=== PATIENT | male | born 1970 | race Two or more races ===

== ENCOUNTER 2020-07-13 14:46 | Emergency (ER) | payer MEDICAID, SELFPAY ==
--- NOTE | 2020-07-13 15:55 | ED.GENADULT ---
HPI - General Adult General Chief complaint: General Medical Stated complaint: covid test Time Seen by Provider: 07/13/20 15:55 Source: patient Mode of arrival: ambulatory Limitations: no limitations History of Present Illness MD complaint: wants covid test Onset (ago): day(s) (1) Radiation: non-radiation Severity: mild Relieving factors: none Exacerbating factors: none Associated symptoms: denies other symptoms Treatments prior to arrival: none Related Data Allergies Allergy/AdvReac Type Severity Reaction Status Date / Time No Known Allergies Allergy Unverified 06/06/20 14:46 Review of Systems Review of Systems: Constitutional : No Weight loss, No Fever, No Chills, No Fatigue, No Malaise ENT/Mouth : No sore throat, No Rhinorrhea Eyes: No Eye Pain, No Swelling, No Redness Cardiovascular : No Chest Pain, No SOB, No Dyspnea on Exertion, No Orthopnea, No Edema, No Palpitations Respiratory : No Cough, No Sputum, No Wheezing Gastrointestinal : No Nausea, No Vomiting, No Diarrhea, No Constipation, No abdominal pain Musculoskeletal : No joint pain, No Myalgias, No Joint Swelling Skin : No Skin Lesions, No rash Neuro : No Weakness, No Numbness, No Dizziness, No Headache All other systems reviewed and are negative [facility] Past Medical History Medical History (Updated 07/13/20 @ 16:00 by Jolly Palma DO) No active medical problems Social History Social History (Updated 07/13/20 @ 16:00 by Jolly Palma DO) Smoking Status: Current every day smoker Substance Use Type: Former Substance User Physical Exam Vital Signs: Appearance: Alert. Oriented X3. No acute distress. Eyes: Pupils equal, round and reactive to light. ENT: Pharynx normal. Neck: Normal inspection. Neck supple. CVS: Normal heart rate and rhythm. Pulses normal. Respiratory: No respiratory distress. Breath sounds normal. Abdomen: Soft and nontender. Skin: Skin warm and dry. Normal skin color. Normal skin turgor. Extremities: No lower extremity edema. No calf ttp Neuro: Oriented X 3. No motor deficit. No sensory deficit. Medical Decision Making MDM Narrative Medical decision making narrative: 50 yo male asymptomatic male with no sig medical problems here and wants COVID test. Discharge Plan Discharge Clinical Impression: Normal exam Patient Disposition: Home, Self-Care Instructions: COVID-19 (Coronavirus Disease 2019) (ED) Additional Instructions: you were tested for COVID we will call you with results in 2 to 4 days, wear a mask, socially distance
[2020-07-13 16:09] VITALS: BP 134/84; PULSE 79; RESP 16; TEMP 37.1; O2SAT 100; BMI 25.0
== END 2020-07-13 16:30 | disposition home or self-care (01) ==
PROVIDERS: Emergency Provider Emergency Medicine
DX: Z20.828 Contact with and (suspected) exposure to other viral communicable diseases (principal); F17.200 Nicotine dependence, unspecified, uncomplicated; Z71.6 Tobacco abuse counseling
CPT/HCPCS: 87635; 99283

== ENCOUNTER 2020-10-30 13:48 | Outpatient (REF) | payer MEDICAID, SELFPAY | END 2020-10-30 13:49 | disposition home or self-care (01) | LOC: HO.LAB 13:48 | PROVIDERS: Visit Provider Internal Medicine | DX: Z20.822 Contact with and (suspected) exposure to COVID-19 (principal) | CPT/HCPCS: 36415; C9803; U0003; U0005 ==

== ENCOUNTER 2023-05-24 15:13 | Emergency (ER) | payer MEDICAID, SELFPAY ==
--- NOTE | 2023-05-24 16:18 | ED_ITS ---
HPI - General Adult General Chief complaint: Skin/Abscess/Foreign Body Stated complaint: Rash on arms Time Seen by Provider: 05/24/23 20:48 Source: patient Mode of arrival: ambulatory Limitations: no limitations History of Present Illness HPI narrative: Patient comes to the emergency room complaining of itching all over his body for 5 years. Patient denies fever chills. Related Data Previous Rx's Medication Instructions Recorded hydrocortisone 2.5 % topical cream 1 appl topical TID PRN itching 05/24/23 #28.35 grams Allergies Allergy/AdvReac Type Severity Reaction Status Date / Time No Known Allergies Allergy Verified 05/24/23 16:21 Review of Systems Review of Systems: Constitutional : No Weight loss, No Fever, No Chills, No Night Sweats, No Fatigue, No Malaise ENT/Mouth : No Hearing loss, No Ear Pain, No Nasal Congestion, No Sinus Pain, No Hoarseness, No sore throat, No Rhinorrhea, No Swallowing Difficulty Eyes: No Eye Pain, No Swelling, No Redness, No Foreign Body, No Discharge, No Vision Changes Cardiovascular : No Chest Pain, No SOB, No Dyspnea on Exertion, No Orthopnea, No Edema, No Palpitations Respiratory : No Cough, No Sputum, No Wheezing, No Smoke Exposure, No Dyspnea Gastrointestinal : No Nausea, No Vomiting, No Diarrhea, No Constipation, No abdominal Pain, No Hematochezia, No Melena Genitourinary : no irregular bleeding, No Dysuria, No Urinary Frequency, No Hematuria, No Urinary Incontinence, No Urgency, No Flank Pain, No Urinary Flow Changes, No Hesitancy Musculoskeletal : No joint pain, No Myalgias, No Joint Swelling Skin : Complaining of diffuse itchy skin for 5 years Neuro : No Weakness, No Numbness, No Paresthesias, No Loss of Consciousness, No Dizziness, No Headache Psych : No Anxiety/Panic, No Depression, No SI/HI/AH/VH, No Social Issues, Heme/Lymph: No Bruising, No Bleeding,No Lymphadenopathy Endocrine : No Polyuria, No Polydipsia, No Temperature Intolerance COUNTS INCLUDE 234 BEDS AT THE [facility] Past Medical History Medical History No active medical problems Social History Social History (Updated 07/13/20 @ 16:00 by Bella Palma DO) Alcohol intake: never Substance Use Type: Former Substance User Advance Directives: No Advance Directives Information Provided: No Physical Exam ED Vital Signs: Vital Signs - 24 hr 05/24/23 16:19 05/24/23 21:06 Temperature 98.8 F 98 F Pulse Rate 75 58 Respiratory Rate 18 17 Blood Pressure 135/71 104/58 L Pulse Oximetry 97 98 Oxygen Delivery Method Room Air Room Air BMI result Body Mass Index 21.9 Const Other: Appearance: Alert. Oriented X3. No acute distress. Eyes: Pupils equal, round and reactive to light. ENT: Pharynx normal. Neck: Normal inspection. Neck supple. No lymph nodes noted. No crepitus CVS: Normal heart rate and rhythm. Pulses normal. Normal S1 and S2 Respiratory: No respiratory distress. Breath sounds normal. No Wheezing. No rales Abdomen: Soft and nontender. No rigidity. No distention. Skin: Skin warm and dry. Patient has scratch sapp and nail sapp in his face and lower extremities. No hives or visible rash Extremities: No lower extremity edema. No Lacerations. No Rash Neuro: Oriented X 3. No motor deficit. No sensory deficit. Moving all extremities. No slurred speech. CN 2 through 12 grossly intact Psych: calm, cooperative, normal affect Course Course Course Narrative: This is a rapid medical exam: Additional HPI, ROS, PE not included below will be deferred to primary provider. Patient is a 53-year-old male presenting to the emergency department with complaint of rash to arms, legs, face for approximately one month. Describes as pruritic, non painful. Reports that when the lesions become wet the scabs fall off leaving an open wound. Denies any fevers. No oral lesions. Medical Decision Making Medical Decision Making MDM Narrative: -no obvious rash present -patient to apply topical steroids to the affected areas. -no signs of bed bugs or scabies Differential Diagnosis Differential Diagnoses: The differential diagnosis associated with the presentation includes (Dermatitis, dry skin) Discharge Plan Discharge Clinical Impression: Dermatitis Patient Disposition: Home, Self-Care Instructions: Dermatitis (ED) Additional Instructions: Please follow-up with your primary care physician tomorrow. If you have any worsening or new symptoms, please return to the emergency room or call 911 Prescriptions: New hydrocortisone 2.5 % cream 1 appl topical TID PRN (Reason: itching) Qty: 28.35 0RF
[2023-05-24 16:19] VITALS: BP 135/71; PULSE 75; RESP 18; TEMP 37.1; O2SAT 97; BMI 21.9
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
[2023-05-24 21:06] VITALS: BP 104/58; PULSE 58; RESP 17; TEMP 36.6; O2SAT 98
== END 2023-05-24 21:31 | disposition home or self-care (01) ==
PROVIDERS: Emergency Provider Emergency Medicine
DX: L30.9 Dermatitis, unspecified (principal); R21 Rash and other nonspecific skin eruption
CPT/HCPCS: 99283

== ENCOUNTER 2023-07-17 03:26 | Emergency (ER) | payer SELFPAY ==
[2023-07-17] VITALS (7 sets, daily range): BP systolic 116–171; BP diastolic 57–101; PULSE 70–99; RESP 12–16; TEMP 36.6–36.9; O2SAT 97–98; BMI 24.4
--- NOTE | 2023-07-17 05:41 | PC.NURSE ---
respirations even and unlabored nsr on monitor 72 bpm sats 97% RA. pt sleeping in stretcher; awaiting primary eval by ed provider. call lemus within reach.
--- NOTE | 2023-07-17 06:10 | MHC.EDTECH ---
Pt still refusing to dress into hospital pants and gown
--- NOTE | 2023-07-17 06:44 | ED.GENADULT ---
HPI - General Adult General Chief complaint: General Medical Stated complaint: Substance abuse Time Seen by Provider: 07/17/23 06:34 Source: patient and EMS Mode of arrival: EMS Limitations: no limitations History of Present Illness HPI narrative: 53-year-old male with a history of polysubstance use presents to the ER with complaints of feeling like bugs are crawling on him. Patient states he uses heroin and crack daily. Patient reports he injects these. He denies alcohol use. He is currently homeless. He denies SI or HI. Related Data Previous Rx's Medication Instructions Recorded hydrocortisone 2.5 % topical cream 1 appl topical TID PRN itching 05/24/23 #28.35 grams Allergies Allergy/AdvReac Type Severity Reaction Status Date / Time No Known Allergies Allergy Verified 05/24/23 16:21 Review of Systems Review of Systems: Yes all other systems are reviewed and are negative Constitutional: Constitutional: Reports no additional constitutional complaints, Denies body ache(s), Denies chills, Denies fever(s), Denies headache(s) and Denies weakness Eyes: Eyes: Reports no additional eye complaints and Denies change in vision ENT: Reports system reviewed and no additional complaints, except as documented, Denies dizziness, Denies headache(s), Denies nasal congestion, Denies nasal discharge and Denies neck pain Cardiovascular: Cardiovascular: Reports no additional cardiovascular complaints, Denies chest pain, Denies leg edema and Denies dyspnea Respiratory: Respiratory: Reports no additional respiratory complaints, Denies cough and Denies dyspnea Gastrointestinal: Gastrointestinal: Reports no additional gastrointestinal complaints, Denies abdominal pain, Denies diarrhea, Denies nausea and Denies vomiting Genitourinary: Genitourinary: Denies urinary incontinence Musculoskeletal: Musculoskeletal: Reports no additional musculoskeletal complaints, Denies back pain, Denies arthralgias, Denies joint swelling, Denies neck pain, Denies numbness and Denies tingling Integumentary/Breasts: Skin/Breast: Reports system reviewed and no additional complaints, except as docu and Denies rash Neurologic: Reports system reviewed and no additional complaints, except as documented, Denies Abnormal speech present, Denies dizziness, Denies headache(s), Denies numbness, Denies tingling and Denies weakness PMF Past Medical History Attestation statement: The following information was validated with the patient. Source: old records reviewed and nursing notes reviewed Medical History No active medical problems Social History Social History Alcohol intake: never Smoked in Last 30 Days: Yes Use of substances other than those prescribed or required for medical reasons: Yes Substance Use Type: Crack/Cocaine and Heroin Advance Directives: No Advance Directives Information Provided: No Physical Exam ED Vital Signs: Vital Signs - 24 hr 07/17/23 03:36 07/17/23 03:45 07/17/23 05:42 Temperature 98.4 F Pulse Rate 99 85 72 Respiratory Rate 16 15 16 Blood Pressure 171/101 H 170/101 H Pulse Oximetry 98 97 97 Oxygen Delivery Method Room Air Room Air Room Air 07/17/23 06:09 07/17/23 10:56 Temperature 97.8 F Pulse Rate 70 74 Respiratory Rate 12 12 Blood Pressure 116/77 129/57 L Pulse Oximetry 98 98 Oxygen Delivery Method Room Air Room Air BMI result Body Mass Index 24.4 Const General: cooperative, healthy appearing, comfortable and no acute distress Orientation/consciousness: patient oriented x3 Limitations: no limitations HENMT Head: Yes normal to inspection Ears: hearing grossly normal bilaterally General nose exam: Normal external nose present Face and sinus: Yes normal facial exam Mouth: Normal oral and palatal mucosa present Throat: Yes posterior oropharynx normal Eyes General: appearance normal, both eyes and all related structures Pupils: Equal, round and reactive pupils present Neck Neck: Yes normal visual inspection Chest Chest palpation & inspection: normal inspection of the chest Resp Effort & Inspection: normal respiratory effort Auscultation: clear to auscultation bilaterally Cardio Rate: regular rate Rhythm: regular rhythm Peripheral pulses: Peripheral pulses 2+ throughout GI Inspection: Yes normal to inspection Palpation (GI): Soft to palpation and nontender Auscultation: normal bowel sounds Back/Spine/Pelvis Thoracic/Lumbar Spine: thoracic and lumbar spine normal to inspection Skin General skin exam: no rashes or lesions noted Neuro General: patient oriented x3, no focal motor deficits and normal sensation to monofilament Cranial nerves: Yes Equal, round and reactive pupils present Cognition (Neuro): normal cognition Speech: No Abnormal speech present Gait exam (Neuro): Normal gait present Motor exam (neuro): 5/5 motor strength present throughout Extrem General: Yes normal to inspection Course Course Course Narrative: 1120-No longer wants to speak to learning coach. Up and ambulatory with steady gait. Tolerating PO. Plan for discharge Medical Decision Making Medical Decision Making [facility] Narrative: 53-year-old male with a history of polysubstance use presents to the ER with complaints of feeling like bugs are crawling on him.? Patient states he uses heroin and crack daily.? Patient reports he injects these.? He denies alcohol use.? He is currently homeless.? He denies SI or HI. Exam is benign. Patient wants to talk to the learning coach. Differential Diagnosis Differential Diagnoses: The differential diagnosis associated with the presentation includes Polysubstance use Consult Healthcare Provider Management of the patient was discussed with: Spooling Supervisor Independent Historian Clinical information obtained from an independent historian. History obtained from or confirmed by: EMS Discharge Plan Discharge Clinical Impression: Polysubstance use disorder Patient Disposition: Home, Self-Care Instructions: Polysubstance Abuse (ED) Prescriptions: No Action hydrocortisone 2.5 % cream 1 appl topical TID PRN (Reason: itching) Qty: 28.35 0RF
--- NOTE | 2023-07-17 07:43 | PC.NURSE ---
pt appear to be sleeping with even and unlabored respirations. call lemus within reach
--- NOTE | 2023-07-17 10:57 | PC.NURSE ---
patient awake in room, removed self from ekg monitor.
--- NOTE | 2023-07-17 11:15 | PC.NURSE ---
patient provided with water and sandwich. when asked if patient was interested in detox he stated I'm about to leave, I'm ready to go . provider aware. attempting to find t-shirt for patient d/t fact he came in with no clothing.
--- NOTE | 2023-07-17 11:34 | MHC.RECOVRN ---
data analysis intern met with patient in ED Bed 6. He was being discharged- waiting for DC instructions. Patient reports using heroin, but is not interested in discussing this further. Confirmed he is not interested in MOUD at this time. He was anxious to leave. RN able to provide him with [facility] contact information prior to him walking. Discharging RN able to hand him DC instructions just prior to him walking out.
== END 2023-07-17 11:47 | disposition home or self-care (01) ==
LOC: HO.ED 11:30
PROVIDERS: Emergency Provider Student in an Organized Health Care Education/Training Program
DX: F19.10 Other psychoactive substance abuse, uncomplicated (principal)
CPT/HCPCS: 99282; 99284

== ENCOUNTER 2023-12-06 10:03 | Emergency (ER) | payer MEDICAID, SELFPAY ==
[2023-12-06 10:21] VITALS: BP 132/81; PULSE 86; RESP 16; TEMP 36.9; O2SAT 100; BMI 22.4
--- NOTE | 2023-12-06 13:21 | ED_ITS ---
HPI - Skin/Abscess/Foreign Bdy General Chief complaint: Skin/Abscess/Foreign Body Stated complaint: neck abscess Time Seen by Provider: 12/06/23 12:49 Source: patient Mode of arrival: ambulatory Limitations: no limitations History of Present Illness HPI narrative: 53-year-old male presents with concerns that he has an abscess that is developing and worsening to the back of his neck for the past week. Reports it is sore. He reports it has been self draining. Denies fevers, chills, numbness, tingling, difficulties moving neck, headache, vision changes, dizziness or weakness. Related Data Previous Rx's Medication Instructions Recorded hydrocortisone 2.5 % topical cream 1 appl topical TID PRN itching 05/24/23 #28.35 grams cephalexin 500 mg tablet 500 mg PO Q6H 10 days #40 tabs 12/06/23 doxycycline hyclate 100 mg capsule 100 mg PO BID 10 days #20 caps 12/06/23 Allergies Allergy/AdvReac Type Severity Reaction Status Date / Time No Known Allergies Allergy Verified 12/06/23 10:21 Review of Systems Review of Systems: Yes all other systems are reviewed and are negative [facility] Past Medical History Attestation statement: The following information was validated with the patient. Source: old records reviewed and nursing notes reviewed Medical History No active medical problems Social History Social History Unable to assess alcohol history related to: Unknown Alcohol intake: never Smoked in Last 30 Days: No Use of substances other than those prescribed or required for medical reasons: No Substance Use Type: Crack/Cocaine and Heroin Advance Directives: No Physical Exam Vital Signs: Vital Signs: Last Vital Signs Temp 98.5 F 12/06/23 10:21 Pulse 86 12/06/23 10:21 Resp 16 12/06/23 10:21 BP 132/81 12/06/23 10:21 Pulse Ox 100 12/06/23 10:21 O2 Del Method Room Air 12/06/23 10:21 BMI result Body Mass Index 22.4 Vital signs stable Appearance: Alert.? Oriented X3.? No acute distress.? Head: Normocephalic, atraumatic, no step-offs or deformities Eyes: Pupils equal, round and reactive to light.? Neck: Neck supple.? CVS? Pulses normal.? Respiratory: No respiratory distress. Abdomen: Soft and nontender.? Skin: Skin warm and dry.? Normal skin color.? Normal skin turgor.?2 cm x 2 cm indurated area in the back of the neck appears to be developing abscess with overlying erythema and warmth. No streaking or lymphangitic spread. Full range of motion to neck, painless. Extremities: No lower extremity edema.? No calf ttp. 5/5 strength to bilateral upper and lower extremities Neuro: Oriented X 3.? No motor deficit.? No sensory deficit. CN 2-12 intact Medical Decision Making Medical Decision Making MDM Narrative: 53-year-old male presents with developing abscess to back of neck present for a week worsening. Intermittently draining. Physical exam 2 cm x 2 cm indurated area in the back of the neck appears to be developing abscess with overlying erythema and warmth. No streaking or lymphangitic spread. Full range of motion to neck, painless. History and physical exam concerning for developing abscess. No signs of fluctuance on exam therefore unlikely abscess that is ready to be drained. Unlikely necrotizing infection, meningitis or encephalitis. No signs of systemic illness. Plan at this time will discharge patient home with antibiotics instructed on warm soaks. Educated on reassessment/re-evaluation in a week by PCP or to return for wound check. If worsening. Educated patient on diagnosis and treatment plan, answered all question, patient verbalizes understanding. At this time patient will be discharged home, advised to return with new or worsening symptoms. Educated on worrisome signs and symptoms and when to return. At this time I feel comfortable discharge home. Differential Diagnosis Differential Diagnoses: The differential diagnosis associated with the presentation includes History and physical exam concerning for developing abscess. No signs of fluctuance on exam therefore unlikely abscess that is ready to be drained. Unlikely necrotizing infection, meningitis or encephalitis. No signs of systemic illness. Admission/Observation Consideration of admission/observation: Escalation of care including admission/observation considered Prescription Management I considered prescription management with: Antibiotic (doxy and keflex ) Chronic Conditions Patient?s care impacted by: Other (Hx of IVDA) Discharge Plan Discharge Clinical Impression: Abscess of skin or subcutaneous tissue, Cellulitis Patient Disposition: Home, Self-Care Instructions: Cellulitis (ED), Abscess Follow-up (ED), Warm Compress or Soak (ED) Additional Instructions: Take your medications as prescribed. If you were prescribed antibiotics today, it is important that you take your medication to their entirety, do not skip any doses, do not finish them early. Follow-up with your primary care provider this week. Return to the emergency department with new or worsening symptoms. Such as fevers, chills, chest pain, shortness of breath, nausea, vomiting, dizziness, headache, vision changes, lethargy In case of emergency call 911 Prescriptions: New doxycycline hyclate 100 mg capsule 100 mg PO BID 10 Days Qty: 20 0RF cephalexin 500 mg tablet 500 mg PO Q6H 10 Days Qty: 40 0RF No Action hydrocortisone 2.5 % cream 1 appl topical TID PRN (Reason: itching) Qty: 28.35 0RF Referrals: Physician,None [Primary Care Provider] - 2 days Stand Alone Forms: Work/School Release
[2023-12-06 13:52] VITALS: BP 120/68; PULSE 70; RESP 16; TEMP 36.6; O2SAT 96
== END 2023-12-06 13:52 | disposition home or self-care (01) ==
PROVIDERS: Emergency Provider Emergency Medicine
DX: L02.11 Cutaneous abscess of neck (principal); L03.221 Cellulitis of neck
CPT/HCPCS: 99283; 99284

== ENCOUNTER 2024-07-10 22:36 | Emergency (ER) | payer MEDICAID, SELFPAY ==
[2024-07-10 22:39] VITALS: BP 152/0; PULSE 68; O2SAT 96; BMI 21.9
[2024-07-10 22:43] VITALS: BP 161/96; PULSE 71; RESP 18; TEMP 36.9; O2SAT 100
--- NOTE | 2024-07-11 01:15 | ED_ITS ---
HPI - General Adult General Chief complaint: General Medical Stated complaint: cocaine use Time Seen by Provider: 07/11/24 00:25 Source: patient Mode of arrival: ambulatory Limitations: no limitations History of Present Illness ED Provider: Dr. Ese Duong HPI narrative: patient comes to the emergency room by ambulance. Patient was found in the sidewalk completely naked, stating that he has bugs crawling all over The skin. Patient admits that he has been using heroin and cocaine. Patient has some questionable bug bites. However, no obvious bugs crawling. Patient denies SI or HI, denies any falls or injuries. Related Data Previous Rx's ?Medication ?Instructions ?Recorded hydrocortisone 2.5 % topical cream 1 appl topical TID PRN itching 05/24/23 #28.35 grams cephalexin 500 mg tablet 500 mg PO Q6H 10 days #40 tabs 12/06/23 doxycycline hyclate 100 mg capsule 100 mg PO BID 10 days #20 caps 12/06/23 permethrin 5 % topical cream 1 appl topical Q14D 2 doses #60 07/11/24 grams Allergies Allergy/AdvReac Type Severity Reaction Status Date / Time No Known Allergies Allergy Verified 07/10/24 22:45 Review of Systems Review of Systems: Constitutional : No Weight loss, No Fever, No Chills, No Night Sweats, No Fatigue, No Malaise ENT/Mouth : No Hearing loss, No Ear Pain, No Nasal Congestion, No Sinus Pain, No Hoarseness, No sore throat, No Rhinorrhea, No Swallowing Difficulty Eyes: No Eye Pain, No Swelling, No Redness, No Foreign Body, No Discharge, No Vision Changes Cardiovascular : No Chest Pain, No SOB, No Dyspnea on Exertion, No Orthopnea, No Edema, No Palpitations Respiratory : No Cough, No Sputum, No Wheezing, No Smoke Exposure, No Dyspnea Gastrointestinal : No Nausea, No Vomiting, No Diarrhea, No Constipation, No abdominal Pain, No Hematochezia, No Melena Genitourinary : no irregular bleeding, No Dysuria, No Urinary Frequency, No Hematuria, No Urinary Incontinence, No Urgency, No Flank Pain, No Urinary Flow Changes, No Hesitancy Musculoskeletal : No joint pain, No Myalgias, No Joint Swelling Skin : Complaining of rash secondary to bug bites Neuro : No Weakness, No Numbness, No Paresthesias, No Loss of Consciousness, No Dizziness, No Headache Psych : Complaining of feeling bugs crawling all over, admits to polysubstance abuse. Heme/Lymph: No Bruising, No Bleeding,No Lymphadenopathy Endocrine : No Polyuria, No Polydipsia, No Temperature Intolerance [facility] Past Medical History Medical History (Updated 07/11/24 @ 01:20 by Ese Duong MD) Polysubstance abuse No active medical problems Social History Social History Unable to assess alcohol history related to: Unknown Alcohol intake: never Smoked in Last 30 Days: No Substance Use Type: Crack/Cocaine and Heroin Last Used Substance: Just Prior to Admission Do you have a plan to hurt others: No Plan Physical Exam ED Vital Signs: Vital Signs - 24 hr 07/10/24 22:43 Temperature 98.5 F Pulse Rate 71 Respiratory Rate 18 Blood Pressure 161/96 H Pulse Oximetry 100 Oxygen Delivery Method Room Air BMI result Body Mass Index 21.9 Const Other: Appearance: Alert. Oriented X3. No acute distress. Eyes: Pupils equal, round and reactive to light. ENT: Pharynx normal. Neck: Normal inspection. Neck supple. No lymph nodes noted. No crepitus CVS: Normal heart rate and rhythm. Pulses normal. Normal S1 and S2 Respiratory: No respiratory distress. Breath sounds normal. No Wheezing. No rales Abdomen: Soft and nontender. No rigidity. No distention. Skin: occasional eschars, questionably bedbug bites? patient has questionably head lice Extremities: No lower extremity edema. No Lacerations. No Rash Neuro: Oriented X 3. No motor deficit. No sensory deficit. Moving all extremities. No slurred speech. CN 2 through 12 grossly intact Psych: calm, cooperative, normal affect Medical Decision Making Medical Decision Making MDM Narrative: Patient has occasional sapp on his skin, picking versus bedbugs. 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 Patient is not SI or HI Discharge Plan Discharge Clinical Impression: Delusions of parasitosis Patient Disposition: Home, Self-Care Instructions: Insect Bite or Sting (ED) Additional Instructions: Please follow-up with your primary care physician tomorrow. If you have any worsening or new symptoms, please return to the emergency room or call 911 Prescriptions: New permethrin 5 % cream 1 appl topical Q14D Qty: 60 0RF Rx Instructions: apply second treatment 14 days after first treatment if live lice remain No Action doxycycline hyclate 100 mg capsule 100 mg PO BID 10 Days Qty: 20 0RF cephalexin 500 mg tablet 500 mg PO Q6H 10 Days Qty: 40 0RF hydrocortisone 2.5 % cream 1 appl topical TID PRN (Reason: itching) Qty: 28.35 0RF Print Language: Kyrgyz
[2024-07-11 01:29] VITALS: BP 0/0; PULSE 0; RESP 22; TEMP -17.7; TEMP 0
== END 2024-07-11 01:32 | disposition home or self-care (01) ==
LOC: HO.ED 07-11 01:32
PROVIDERS: Emergency Provider Emergency Medicine
DX: F22 Delusional disorders (principal); F14.10 Cocaine abuse, uncomplicated; F11.10 Opioid abuse, uncomplicated; Z71.51 Drug abuse counseling and surveillance of drug abuser
CPT/HCPCS: 99284